=== PATIENT | female | born 1930 | race Hispanic/Latino ===

== ENCOUNTER 2018-07-03 15:59 | Emergency (ER) | payer MEDICARE ==
[2018-07-03 16:18] VITALS: BMI 44.2
[2018-07-03] MEDS ORDERED: Oxycodone/Acetaminophen 5/325 mg Tab PO STA (16:22)
[2018-07-03 16:28] VITALS: RESP 18; TEMP 97.4
[2018-07-03] MEDS ORDERED: Lidocaine 5% Patch TD STA (16:38)
--- NOTE | 2018-07-03 16:46 | ED PDOC ---
Arrival/HPI - General Chief Complaint: Back Pain Time Seen by Provider: 07/03/18 16:00 Historian: Patient - History of Present Illness Narrative History of Present Illness (Text): 07/03/18 16:22 87 year old female, whose past medical history includes hypertension presents to the emergency department complaining of left sided posterior rib pain. Patient reports having a mechanical fall last week, but did not seek medical evaluation at the time and has been ambulating unassisted on her own. She reports tenderness to palpation to her upper back and only taking Tylenol for the pain. Patient denies any head injury with fall, erythema, swelling, loss of consciousness and denies taking blood thinners. She also denies fevers, chills, headache, dizziness, chest pain, shortness of breath, dyspnea on exertion, cough, abdominal pain, nausea, vomiting, diarrhea, back pain, neck pain, or any other complaint. Time/Duration: > week Symptom Onset: Gradual Symptom Course: Unchanged Activities at Onset: Light Context: Home Past Medical History - Provider Review Nursing Documentation Reviewed: Yes - Infectious Disease Hx of Infectious Diseases: None - Tetanus Immunization Tetanus Immunization: Unknown - Reproductive Menopause: No - Cardiac Hx Hypertension: Yes - Psychiatric Hx Depression: No Hx Emotional Abuse: No Hx Physical Abuse: No Hx Substance Use: No - Surgical History Hx Appendectomy: Yes Hx Cholecystectomy: Yes - Anesthesia Hx Anesthesia: Yes Hx Anesthesia Reactions: No Hx Malignant Hyperthermia: No - Suicidal Assessment Feels Threatened In Home Enviroment: No Family/Social History - Physician Review Nursing Documentation Reviewed: Yes Family/Social History: No Known Family HX Smoking Status: Never Smoked Hx Alcohol Use: No Hx Substance Use: No Hx Substance Use Treatment: No Allergies/Home Meds Allergies/Adverse Reactions: Allergies No Known Allergies Allergy (Verified 07/03/18 16:28) Home Medications: Home Meds Medication Instructions Recorded Confirmed Lisinopril/Hydrochlorothiazide 1 each PO DAILY 07/03/18 07/03/18 [Lisinopril-Hctz 10-12.5 mg Tab] RX: Allopurinol [Zyloprim] 300 mg PO DAILY 07/03/18 07/03/18 Review of Systems - Physician Review All systems were reviewed & negative as marked: Yes - Review of Systems Constitutional: absent: Fevers Eyes: absent: Vision Changes Respiratory: absent: SOB, Cough Cardiovascular: absent: Chest Pain, Edema Gastrointestinal: absent: Abdominal Pain, Diarrhea, Nausea, Vomiting Musculoskeletal: Back Pain (upper back pain ), Other (left sided posterior rib pain ). absent: Neck Pain Neurological: absent: Headache, Dizziness Physical Exam Vital Signs Reviewed: Yes Vital Signs Temp Pulse Resp BP Pulse Ox 07/03/18 16:11 97.4 F L 61 18 196/78 H 96 Temperature: Afebrile Blood Pressure: Hypertensive Pulse: Regular Respiratory Rate: Normal Appearance: Positive for: Well-Appearing, Non-Toxic, Comfortable Pain Distress: None Mental Status: Positive for: Alert and Oriented X 3 - Systems Exam Head: Present: Atraumatic, Normocephalic Pupils: Present: PERRL Extroacular Muscles: Present: EOMI Conjunctiva: Present: Normal Mouth: Present: Moist Mucous Membranes Neck: Present: Normal Range of Motion Respiratory/Chest: Present: Clear to Auscultation, Good Air Exchange, Other (point tenderness to the upper thoracic region on the R side). No: Respiratory Distress, Accessory Muscle Use Cardiovascular: Present: Regular Rate and Rhythm, Normal S1, S2. No: Murmurs Abdomen: No: Tenderness, Distention, Peritoneal Signs Back: Present: Normal Inspection Upper Extremity: Present: Normal Inspection. No: Cyanosis, Edema Lower Extremity: Present: Normal Inspection. No: Edema Neurological: Present: GCS=15, CN II-XII Intact, Speech Normal Skin: Present: Warm, Dry, Normal Color. No: Rashes Psychiatric: Present: Alert, Oriented x 3, Normal Insight, Normal Concentration Medical Decision Making ED Course and Treatment: 07/03/18 16:22 Impression: 87 year old female who presents to the emergency department complaining of left sided posteriori rib pain. Differential Diagnosis included but are not limited to: Rib fracture Vertebral fracture Plan: -- Lidoderm -- Percocet -- Tylenol -- Left sided Rib X-ray -- Right sided Rib X-ray -- Lumbar spine X-ray -- Reassess and disposition Prior Visits: Notes and results from previous visits were reviewed. Progress Notes: 07/03/18 18:00 Rib series shows no evidence of rib fractures. Updated imaging results shared with patient who desires to go home and follow up with her PCP. She wishes to go home and assist her who had a major procedure and is in recovery. She is encouraged to continue supportive measures. She is stable for discharge. - RAD Interpretation Narrative RAD Interpretations (Text): 07/03/18 18:30 Right rib X-ray reviewed, Shows: IMPRESSION: Unremarkable radiographs of the chest and right ribs. No right rib fracture. Left rib X-ray reviewed, Shows: IMPRESSION: Unremarkable radiographs of the chest and left ribs. No left rib fracture. Lumbar Spine X-ray reviewed, shows: IMPRESSION: No acute findings related to/ accounting fo the clinical presentation. 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 I have reviewed the chart and agree that the record accurately reflects my personal performance of the history, physical exam, medical decision making, and the department course for this patient. I have also personally directed, reviewed, and agree with the discharge instructions and disposition. Disposition/Present on Arrival - Present on Arrival Any Indicators Present on Arrival: No History of DVT/PE: No History of Uncontrolled Diabetes: No Urinary Catheter: No History of Decub. Ulcer: No History Surgical Site Infection Following: None - Disposition Have Diagnosis and Disposition been Completed?: Yes Diagnosis: Rib pain Disposition: HOME/ ROUTINE Disposition Time: 18:17 Patient Plan: Discharge Condition: STABLE Discharge Instructions (ExitCare): Chest Pain (ED) Print Language: WELSH Additional Instructions: All medical record entries made by the Scribe were at my direction and personally dictated by me. I have reviewed the chart and agree that the record accurately reflects my personal performance of the history, physical exam, medical decision making, and the department course for this patient. I have also personally directed, reviewed, and agree with the discharge instructions and disposition. Please return to the ED if pain worsens Referrals: [facility] at [facility] [place] [Outside] - Follow up with primary Ewelina Villasenor MD [Medical Doctor] - Follow up with primary Forms: [employer] (German)
--- NOTE | 2018-07-03 18:19 | RAD ---
Date of service: 07/03/2018 PROCEDURE: Radiographs of the Chest and Right Ribs. HISTORY: fall ww/ back pain COMPARISON: None available. TECHNIQUE: Frontal radiograph of the chest and multiple oblique radiographs of the right ribs were obtained. FINDINGS: RIGHT RIBS: No fracture or focal lesion visualized. LUNGS: Clear. PLEURA: No pneumothorax or pleural fluid. CARDIOVASCULAR: Normal cardiac size. No pulmonary vascular congestion. No aortic atherosclerotic calcification present OTHER FINDINGS: None. IMPRESSION: Unremarkable radiographs of the chest and right ribs. No right rib fracture.
--- NOTE | 2018-07-03 18:20 | RAD ---
Date of service: 07/03/2018 PROCEDURE: Radiographs of the Chest and Left Ribs. HISTORY: fall COMPARISON: July 03, 2018. TECHNIQUE: Frontal radiograph of the chest and multiple oblique radiographs of the left ribs were obtained. FINDINGS: LEFT RIBS: No fracture or focal lesion visualized. LUNGS: Clear. PLEURA: No pneumothorax or pleural fluid. CARDIOVASCULAR: Normal cardiac size. No pulmonary vascular congestion. No aortic atherosclerotic calcification present OTHER FINDINGS: None. IMPRESSION: Unremarkable radiographs of the chest and left ribs. No left rib fracture.
--- NOTE | 2018-07-03 18:20 | RAD ---
Date of service: 07/03/2018 PROCEDURE: Radiographs of the Lumbar Spine. HISTORY: fall last week w/ back pain COMPARISON: No prior. FINDINGS: BONES: Scoliosis, secondary degenerative change at multiple levels. DISC SPACES: Disc degenerative changes primarily disc space narrowing and vacuum disc phenomenon OTHER FINDINGS: None. IMPRESSION: No acute findings related to/accounting for the clinical presentation.
[2018-07-03 18:49] VITALS: BP 180/91; PULSE 68; O2SAT 99
[2018-07-04] MEDS ORDERED: Lidocaine 5% Patch TD ONE (16:23)
== END 2018-07-03 18:20 | disposition home or self-care (01) ==
LOC: ED 15:59
DX: R07.9 Chest pain, unspecified (principal); I10 Essential (primary) hypertension